=== PATIENT | female | born 1970 | race Caucasian/White ===

== ENCOUNTER → 2025-03-06 | Outpatient (CLI) | payer BC, SELFPAY ==
[2025-03-06 14:52] LABS: Collection Type, Urine Clean Catch; WBC,Urine 0 /hpf (0-5)
[2025-03-06 15:46] LABS: Bilirubin,Urine Negative (Negative); Blood,Urine Negative (Negative); Clarity,Urine Clear (Clear/Hazy); Color,Urine Colorless (Lt Yel-Yel); Glucose, Urine Negative (Negative); Ketones,Urine Negative (Negative); Leukocyte Esterase,Urine Negative (Negative); Nitrite,Urine Negative (Negative); PH,Urine 6.0 (5.0-7.0); Protein,Urine Negative (Neg - Trace); RBC,Urine 1 /hpf (0-3); Specific Gravity,Urine 1.004 (1.001-1.035); Squamous Epithelial Cell,Urine < 1 /hpf (0-5); Urobilinogen,Urine Negative mg/dL (0.0-1.0)
== END | disposition home or self-care (01) ==
LOC: COPL 14:45
PROVIDERS: PCP Nurse Practitioner Family; Referring Provider Nurse Practitioner Family; Visit Provider Nurse Practitioner Family
DX: N10 Acute pyelonephritis (principal)
CPT/HCPCS: 81001; 87086

== ENCOUNTER → 2025-03-14 | Outpatient (CLI) | payer BC, SELFPAY ==
--- NOTE | 2025-03-14 14:16 | XR_ITS ---
Examination: PA lateral chest 2 views TECHNIQUE: Upright PA lateral chest 2 views Date and time: March 14, 2025 1426 hours INDICATIONS: Coughing shortness of breath beginning 6 months ago. FINDINGS: Normal heart size. Lungs are clear. The osseous structures are intact IMPRESSION: No active disease
[2025-03-14 16:40] LABS: Basophils # (Auto) 0.1 Thou/mm3 (0.0-0.2); Basophils % (Auto) 1 % (0-2.5); Eosinophils # (Auto) 0.2 Thou/mm3 (0.0-0.5); Eosinophils % (Auto) 3 % (0-10); Hematocrit 40.7 % (36.0-46.0); Hemoglobin 13.8 g/dL (12.0-16.0); Immature Granulocytes Auto 0.04 Thou/mm3 (0.00-0.00); Lymphocytes # (Auto) 1.8 Thou/mm3 (1.0-4.8); Lymphocytes % (Auto) 29 % (10-50); Mean Corpuscular HGB Conc 33.9 g/dl (31.0-37.0); Mean Corpuscular Hemoglobin 31.1 pg (25.0-35.0); Mean Corpuscular Volume 92 fL (80-100); Monocytes # (Auto) 0.4 Thou/mm3 (0.0-0.8); Monocytes % (Auto) 6 % (0-12); Neutrophils # (Auto) 3.9 Thou/mm3 (1.8-7.7); Neutrophils % (Auto) 61 % (37-80); Nucleated Red Blood Cell # 0.00 Thou/mm3 (0.00-0.00); Nucleated Red Blood Cell % 0 /100 WBC (0); Platelet Count 230 Thou/mm3 (140-440); RDW Standard Deviation 40.7 fL (36.4-46.3); Red Blood Count 4.44 Miln/mm3 (4.00-5.20); White Blood Count 6.4 Thou/mm3 (3.6-11.0)
[2025-03-14 16:56] LABS: Glucose Estimated Average 103 mg/dL (80-131); Hemoglobin A1C 5.2 % Hgb (4.8-6.0)
[2025-03-14 17:01] LABS: Vitamin B12 609 pg/mL (211-911)
[2025-03-14 17:02] LABS: Alanine Aminotransferase 17 U/L (10-49); Albumin, Serum 4.6 gm/dL (3.5-5.0); Albumin/Globulin Ratio 1.8 (1.2-2.2); Alkaline Phosphatase 91 U/L (46-116); Anion Gap 11 (7-16); Aspartate Amino Transferase 19 U/L (0-34); BUN/Creatinine Ratio 11 Ratio (12-20); Bilirubin,Total 1.2 mg/dL (0.3-1.2); Blood Urea Nitrogen 10 mg/dL (9-23); Calcium 9.6 mg/dL (8.3-10.6); Calcium (Corrected) 9.6 mg/dL (8.5-10.1); Carbon Dioxide 26.4 mMol/L (20.0-31.0); Cardiac Risk Estimate 4.6 RATIO (3.7-5.6); Chloride 106 mMol/L (98-107); Cholesterol 224 mg/dL (132-200); Creatinine (Component) 0.9 mg/dL (0.6-1.3); Free T4 (Free Thyroxine) 1.76 ng/dL (0.89-1.76); Globulin 2.5 gm/dL (2.3-3.5); Glucose 90 mg/dL (74-106); HDL Cholesterol 49 mg/dL (40-60); LDL Cholesterol,Calculated 137 mg/dL (0-130); Osmolality,Calculated 283 (275-295); Potassium 4.0 mMol/L (3.4-5.1); Sodium 143 mMol/L (136-145); Thyroid Stimulating Hormone 0.46 uIU/mL (0.55-4.78); Total Protein 7.1 gm/dL (5.7-8.2); Triglycerides 190 mg/dL (30-150); eGFR > 60 See Note
[2025-03-22 06:31] LABS: Vitamin D,1,25 (OH)2,Total 39 pg/mL (18-72); Vitamin D2, 1,25 (OH)2 15 pg/mL; Vitamin D3, 1,25 (OH)2 24 pg/mL
== END | disposition home or self-care (01) ==
LOC: COPL 14:01
PROVIDERS: PCP Student in an Organized Health Care Education/Training Program; Referring Provider Student in an Organized Health Care Education/Training Program; Visit Provider Radiology Diagnostic Radiology
DX: R06.02 Shortness of breath (principal); E03.9 Hypothyroidism, unspecified; R53.83 Other fatigue; I10 Essential (primary) hypertension; E78.5 Hyperlipidemia, unspecified; E55.9 Vitamin D deficiency, unspecified
CPT/HCPCS: 36415; 71046; 80053; 80061; 82607; 82652; 83036; 84439; 84443; 85025

== ENCOUNTER → 2025-04-17 | Outpatient (CLI) | payer BC, SELFPAY ==
[2025-04-17 17:33] LABS: Basophils # (Auto) 0.0 Thou/mm3 (0.0-0.2); Basophils % (Auto) 1 % (0-2.5); Eosinophils # (Auto) 0.2 Thou/mm3 (0.0-0.5); Eosinophils % (Auto) 4 % (0-10); Hematocrit 37.7 % (36.0-46.0); Hemoglobin 12.8 g/dL (12.0-16.0); Immature Granulocytes Auto 0.04 Thou/mm3 (0.00-0.00); Lymphocytes # (Auto) 1.8 Thou/mm3 (1.0-4.8); Lymphocytes % (Auto) 29 % (10-50); Mean Corpuscular HGB Conc 34.0 g/dl (31.0-37.0); Mean Corpuscular Hemoglobin 31.0 pg (25.0-35.0); Mean Corpuscular Volume 91 fL (80-100); Monocytes # (Auto) 0.4 Thou/mm3 (0.0-0.8); Monocytes % (Auto) 7 % (0-12); Neutrophils # (Auto) 3.6 Thou/mm3 (1.8-7.7); Neutrophils % (Auto) 59 % (37-80); Nucleated Red Blood Cell # 0.00 Thou/mm3 (0.00-0.00); Nucleated Red Blood Cell % 0 /100 WBC (0); Platelet Count 242 Thou/mm3 (140-440); RDW Standard Deviation 41.0 fL (36.4-46.3); Red Blood Count 4.13 Miln/mm3 (4.00-5.20); White Blood Count 6.1 Thou/mm3 (3.6-11.0)
[2025-04-17 17:51] LABS: Alanine Aminotransferase 21 U/L (10-49); Albumin, Serum 4.3 gm/dL (3.5-5.0); Albumin/Globulin Ratio 2.3 (1.2-2.2); Alkaline Phosphatase 89 U/L (46-116); Anion Gap 7 (7-16); Aspartate Amino Transferase 18 U/L (0-34); BUN/Creatinine Ratio 16 Ratio (12-20); Bilirubin,Total 0.6 mg/dL (0.3-1.2); Blood Urea Nitrogen 14 mg/dL (9-23); Calcium 10.2 mg/dL (8.3-10.6); Calcium (Corrected) 10.2 mg/dL (8.5-10.1); Carbon Dioxide 27.9 mMol/L (20.0-31.0); Chloride 106 mMol/L (98-107); Creatinine (Component) 0.9 mg/dL (0.6-1.3); Globulin 1.9 gm/dL (2.3-3.5); Glucose 97 mg/dL (74-106); Osmolality,Calculated 281 (275-295); Potassium 4.4 mMol/L (3.4-5.1); Sodium 141 mMol/L (136-145); Total Protein 6.2 gm/dL (5.7-8.2); eGFR > 60 See Note
== END | disposition home or self-care (01) ==
LOC: COPL 16:58
PROVIDERS: PCP Family Medicine; Referring Provider Plastic Surgery; Visit Provider Plastic Surgery
DX: Z01.818 Encounter for other preprocedural examination (principal); Z41.1 Encounter for cosmetic surgery
CPT/HCPCS: 36415; 80053; 85025